=== PATIENT | female | born 1965 | race Two or more races ===

== ENCOUNTER 2024-10-02 19:27 | Emergency (ER) | payer BC ==
[~2024-10-02] VITALS: Ht 170.2 cm; Wt 73.5 kg
== END 2024-10-02 21:51 | disposition home or self-care (01) ==
LOC: ER 19:29
DX: S42.251A Displaced fracture of greater tuberosity of right humerus, initial encounter for closed fracture (principal); W19.XXXA Unspecified fall, initial encounter; Y93.89 Activity, other specified; Y92.89 Other specified places as the place of occurrence of the external cause